=== PATIENT | male | born 1965 | race African-American/Black ===

== ENCOUNTER 2016-09-01 06:59 | Day surgery (SDC) | payer BC ==
[~2016-09-01] VITALS: Ht 175.3 cm; Wt 93.0 kg
[2016-09-01 08:34] VITALS: BP 132/88; Ht 175.3 cm; Wt 93.0 kg
--- NOTE | 2016-09-01 10:49 | NUR ---
0936 PT REMAINS IN ENDOSCOPY LAB. ROUNDS BY DR. MESSER. PROCEDURE FINDINGS DISCUSSED WITH PT.'S ANDERSON VALENZUELA. Igor CLINTON R.N. 1040 IV AK'ED. DRESSING. Igor CLINTON R.N.
--- NOTE | 2016-09-01 10:55 | NUR ---
1055 DRESSED, AWAKE & ALERT. SITTING UP ON SIDE OF BED. GIVEN DISCHARGE INSTRUCTIONS & ADVISED TO CONTINUE HOME MEDS. PT VOICED UNDERSTANDING. TO PRIVATE CAR PER WHEELCHAIR BY VOLUNTEER. HOME WITH RUPAL BARRON R.N.
--- NOTE | 2016-09-11 09:40 | HP ---
PATIENT: NATHANIEL HOLLIS MEDICAL RECORD: [id number] ACCOUNT: [id number] [facility] 67 ADMISSION DATE: 09/01/16 HISTORY AND PHYSICAL EXAMINATION CHIEF COMPLAINT: Here for colonoscopy. HISTORY OF PRESENT ILLNESS: The patient has no first degree relatives with colon cancer, no hematochezia, no melena, no abdominal pain, no abdominal tenderness. He is to undergo colonoscopy. The risks, possible complications and alternatives to the procedure were explained to the patient. He elects to proceed. ALLERGIES: No known drug allergies. HOME MEDICATIONS: Lisinopril, Plavix and prostate medicines. SOCIAL HISTORY: Nonsmoker. 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 REVIEW OF SYSTEMS: Negative for arthritis, negative for congestive heart failure, negative for asthma. PHYSICAL EXAMINATION: GENERAL: The patient does not appear acutely ill. He does not appear chronically ill. VITAL SIGNS: Reviewed. HEAD: External ears appear normal. EYES: Extraocular movements are intact. NECK: Trachea is midline. CHEST: No intercostal retractions. PULMONARY: Nonlabored, no stridor. ABDOMEN: Nontender. EXTREMITIES: No peripheral cyanosis. IMPRESSION: Desires screening colonoscopy. PLAN: Screening colonoscopy. TRANSINT:[id number] Voice Confirmation ID: [id number] DOCUMENT ID: [id number] CC: Nafisa Castro APN, cannot locate. HISTORY AND PHYSICAL [id number] NATHANIEL HOLLIS EVELIO MESSER MD at 0940 CC: [id number] DICTATION DATE: 09/01/16 0904 POSTAL SERVICE CLERK: 09/01/16 0935 [facility] 09/01/16 [place] [address]
--- NOTE | 2016-09-11 09:40 | OP ---
PATIENT NAME: NATHANIEL HOLLIS MEDICAL RECORD: [id number] :67 LOCATION:D[facility] ADMISSION DATE: SURGEON: KOFI MESSER MD DATE OF OPERATION: 09/01/2016 PREOPERATIVE DIAGNOSIS: Desires screening colonoscopy. POSTOPERATIVE DIAGNOSES: Desires screening colonoscopy. PROCEDURES: Total colonoscopy to cecum. SURGEON: Kofi Messer MD. FINANCIAL EXAMINER: None. BLOOD LOSS: Minimal. ANESTHESIA: IV sedation. COMPLICATIONS: None. The risks, possible complications and alternatives to procedure were explained to the patient. He elects to proceed. ENDOSCOPIC COURSE: The patient was conveyed to the endoscopy suite electively on 09/01/2016. IV sedation was induced by the anesthesia staff. The patient was placed in the Escobar position. A digital rectal examination was performed. The prostate was symmetric. It was without nodules. It was not enlarged. A colonoscope was inserted through the anus. It was easily advanced to the cecum. The prep was excellent. I slowly withdrew the endoscope. I irrigated and aspirated extensively. I dragged the folds. The pullback was greater than a 14-minute pullback. I utilized a combination of direct imaging as well as narrow band imaging to visualize the colonic and rectal coker. A retroflexed view was obtained in the rectum. I then unretroflexed view and removed it under direct vision. Unless the patient develops new symptoms such as bleeding or abdominal pain, he does not require another colonoscopy for 10 years. TRANSINT:[id number] Voice Confirmation ID: [id number] DOCUMENT ID: [id number] CC: Nafisa Castro APN, cannot locate. KOFI MESSER MD at 0940 CC: [id number] DICTATION DATE: 09/01/16 0943 PROGRAM/MUSIC DIRECTOR: 09/01/16 1031 [facility] 09/01/16 [place] [address]
== END 2016-09-01 10:55 | disposition home or self-care (01) ==
LOC: D.OPS 06:59
DX: Z12.11 Encounter for screening for malignant neoplasm of colon (principal); G47.30 Sleep apnea, unspecified; I25.10 Atherosclerotic heart disease of native coronary artery without angina pectoris; I25.2 Old myocardial infarction; F03.90 Unspecified dementia, unspecified severity, without behavioral disturbance, psychotic disturbance, mood disturbance, and anxiety; G62.9 Polyneuropathy, unspecified; R73.03 Prediabetes; Z86.73 Personal history of transient ischemic attack (TIA), and cerebral infarction without residual deficits; Z79.02 Long term (current) use of antithrombotics/antiplatelets; Z79.899 Other long term (current) drug therapy

== ENCOUNTER 2016-11-12 16:26 | Emergency (ER) | payer SELFPAY | END 2016-11-12 18:17 | disposition left against medical advice (07) | LOC: D.ER 16:26 | DX: R05 Cough (principal); I10 Essential (primary) hypertension; Z86.73 Personal history of transient ischemic attack (TIA), and cerebral infarction without residual deficits ==

== ENCOUNTER 2017-05-12 02:11 | Emergency (ER) | payer OTHER | END 2017-05-12 05:01 | disposition home or self-care (01) | LOC: D.ER 02:11 | DX: J02.9 Acute pharyngitis, unspecified (principal); K12.2 Cellulitis and abscess of mouth ==

== ENCOUNTER 2017-06-07 14:32 | Emergency (ER) | payer OTHER | END 2017-06-07 16:21 | disposition home or self-care (01) | LOC: D.ER 14:32 | DX: J06.9 Acute upper respiratory infection, unspecified (principal); J20.9 Acute bronchitis, unspecified; Z86.73 Personal history of transient ischemic attack (TIA), and cerebral infarction without residual deficits; I10 Essential (primary) hypertension ==

== ENCOUNTER 2018-11-06 06:25 | Emergency (ER) | payer OTHER ==
[~2018-11-06] VITALS: Ht 175.3 cm; Wt 96.4 kg
[2018-11-06 06:29] VITALS: Ht 175.3 cm; Wt 96.4 kg
[2018-11-06] MEDS ORDERED: PLAVIX75 MG PO (06:30)
[2018-11-06] MEDS ORDERED: COZAAR25 MG (06:30)
[2018-11-06] MEDS ORDERED: COREG 3.1253.125 MG (06:30)
[2018-11-06] MEDS ORDERED: FLOMAX0.4 MG (06:30)
[2018-11-06] MEDS ORDERED: PROPECIA1 MG (06:31)
[2018-11-06 08:11] LABS: BASOPHILS 0.1 % (0-2); EOSINOPHILS 0.3 % (0-7); HEMATOCRIT 42.3 % (42.0-54.0); HEMOGLOBIN 14.8 g/dL (13.5-17.5); IMMATURE GRANULOCYTES 0.4 % (0-5); LYMPHOCYTES 21.3 % (15-50); MCH 30.8 pg (26.0-34.0); MCV 88.1 fL (80.0-100.0); MEAN PLATELET VOLUME 9.8 fL (7.4-10.4); MONOCYTES 9.7 % (2-11); NEUTROPHILS 68.2 % (40-80); PLATELET COUNT 201 10x3/uL (130-400); RDW 14.2 % (11.5-14.5); WBC 12.5 10x3/uL (4.8-10.8)
[2018-11-06 08:25] LABS: ALBUMIN 3.4 g/dL (3.4-5.0); ALKALINE PHOSPHATASE 52 U/L (46-116); ALT (SGPT) 27 U/L (10-68); BILIRUBIN - TOTAL 0.29 mg/dL (0.2-1.3); CALC OSMOLALITY 278 mosm/kg (275-300); CALCIUM 8.7 mg/dL (8.5-10.1); CARBON DIOXIDE 23.6 mmol/L (21.0-32.0); CHLORIDE - SERUM 103 mmol/L (98-107); CREATININE - SERUM 1.2 mg/dL (0.6-1.3); GLUCOSE 113 mg/dL (74-106); POTASSIUM - SERUM 3.9 mmol/L (3.5-5.1); PROTEIN - SERUM 7.3 g/dL (6.4-8.2); SODIUM 138 mmol/L (136-145); UREA NITROGEN 17 mg/dL (7-18); eGFR NON AFRICAN AMERICAN 67 mL/min (90-120)
[2018-11-06 08:35] LABS: CKMB 1.8 U/L (0.0-3.6); CREATINE KINASE 292 UL (21-232); TROPONIN-I < 0.017 ng/mL (0.000-0.060)
[2018-11-06] MEDS ORDERED: TESSALON PERLE100 MG PO (09:07)
[2018-11-06] MEDS ORDERED: AUGMENTIN 875-11 TAB PO (09:07)
[2018-11-06 09:27] VITALS: BP 142/94
== END 2018-11-06 09:28 | disposition home or self-care (01) ==
LOC: D.ER 06:25
PROVIDERS: Family Medicine
DX: J40 Bronchitis, not specified as acute or chronic (principal); R07.81 Pleurodynia

== ENCOUNTER 2018-12-27 13:56 | Emergency (ER) | payer OTHER ==
[~2018-12-27] VITALS: Ht 175.3 cm; Wt 94.5 kg
[~2018-12-27 13:56] MED LIST: AUGMENTIN 875-11 TAB PO; COREG 3.1253.125 MG; COZAAR25 MG; FLOMAX0.4 MG; PLAVIX75 MG PO; PROPECIA1 MG; TESSALON PERLE100 MG PO
[2018-12-27 13:59] VITALS: Ht 175.3 cm; Wt 94.5 kg
[2018-12-27] MEDS ORDERED: BACLOFEN20 M1 PO (15:28)
[2018-12-27] MEDS ORDERED: VOLTAREN75 MG PO (15:28)
[2018-12-27 15:48] VITALS: BP 166/11
== END 2018-12-27 15:40 | disposition home or self-care (01) ==
LOC: D.ER 13:56
DX: S39.012A Strain of muscle, fascia and tendon of lower back, initial encounter (principal); W18.30XA Fall on same level, unspecified, initial encounter; Y93.89 Activity, other specified; Y92.019 Unspecified place in single-family (private) house as the place of occurrence of the external cause; M62.838 Other muscle spasm